=== PATIENT | female | born 1985 | race Two or more races ===

== ENCOUNTER 2018-02-16 10:22 | Emergency (ER) | payer SELFPAY ==
[~2018-02-16] VITALS: Ht 157.5 cm; Wt 68.1 kg
[2018-02-16] MEDS ORDERED: SODIUM CHLORIDE 0.9% 1,000 ML IV ONE (10:37)
[2018-02-16] MEDS ORDERED: CEFTRIAXONE 1 G PREMIX 50 ML IV ONE (11:00)
[2018-02-16] MEDS ORDERED: RALTEGRAVIR 400MG TABLET PO ONE (11:00)
[2018-02-16] MEDS ORDERED: AZITHROMYCIN 500 MG TABLET PO ONE (11:00)
[2018-02-16] MEDS: TENOFOVIR 300MG TABLET PO SCH ×3 (11:16→14:33)
[2018-02-16] MEDS: EMTRICITABINE 200MG CAPSULE PO SCH ×3 (11:16→14:33)
[2018-02-16 11:51] LABS: BASOPHILS % 0.3 % (0.0-2.0); EOSINOPHILS % 2.4 % (0.0-5.0); LYMPHOCYTES % 20.5 % (20.0-50.0); MEAN CORPUSCULAR HEMOGLOBIN 22.3 pg (28.0-32.0); MEAN CORPUSCULAR VOLUME 71.7 fL (81.0-99.0); MEAN PLATELET VOLUME 8.8 fl (7.4-10.4); MONOCYTES % 7.1 % (2.0-8.0); NEUTROPHILS % 69.7 % (40.0-76.0); PLATELET 368 x1000/uL (130-400); RED BLOOD CELL COUNT 4.05 mill/uL (4.2-5.4); RED CELL DISTRIBUTION WIDTH 24.8 % (11.6-14.6)
[2018-02-16 11:55] LABS: CHLORIDE 107 mEq/L (98-107)
[2018-02-16 11:57] LABS: PROTHROMBIN TIME 10.5 sec (9.1-11.1)
[2018-02-16 11:59] LABS: CLARITY URINE CLOUDY (CLEAR); COLOR URINE YELLOW (YELLOW); KETONES URINE NEGATIVE (NEGATIVE); LEUKOCYTE ESTERASE URINE 1+ (NEGATIVE); NITRITE URINE NEGATIVE (NEGATIVE); OCCULT BLOOD URINE NEGATIVE (NEGATIVE); PH URINE 5.5 (4.5-8.0); PROTEIN URINE NEGATIVE (NEGATIVE); SPECIFIC GRAVITY URINE 1.032 (1.005-1.030); UROBILINOGEN URINE 0.2 E.U./dL (0.2-1.0)
[2018-02-16 12:02] LABS: ETHANOL BLOOD < 10 mg/dL
[2018-02-16 12:29] LABS: HCG SCREEN NEGATIVE
[2018-02-16 12:39] LABS: *BARBITURATES SCREEN URINE NEGATIVE (NEGATIVE)
[2018-02-16 12:40] LABS: *BENZODIAZEPINES SCREEN URINE NEGATIVE (NEGATIVE); *COCAINE SCREEN URINE NEGATIVE (NEGATIVE); CANNABINOID URINE SCREEN NEGATIVE (NEGATIVE); METHADONE URINE SCREEN NEGATIVE (NEGATIVE); OPIATES URINE SCREEN NEGATIVE (NEGATIVE); PHENCYCLIDINE URINE SCREEN NEGATIVE (NEGATIVE)
[2018-02-16 12:43] LABS: *AMPHETAMINES SCREEN URINE PRESUMTIVE POSITIVE (NEGATIVE)
[2018-02-16 13:03] LABS: PLATELET ESTIMATE NORMAL
[2018-02-16 15:51] VITALS: BP 120/66
== END 2018-02-16 16:55 | disposition home or self-care (01) ==
LOC: ER 10:27
DX: T43.625A Adverse effect of amphetamines, initial encounter (principal); F17.210 Nicotine dependence, cigarettes, uncomplicated; R94.31 Abnormal electrocardiogram [ECG] [EKG]; Z20.2 Contact with and (suspected) exposure to infections with a predominantly sexual mode of transmission; Y92.89 Other specified places as the place of occurrence of the external cause; Z79.899 Other long term (current) drug therapy
CPT/HCPCS: 71045; 80053; 80305; 80307; 80329; 81003; 81025; 83690; 84484; 84703; 85025; 85610; 87086; 93005; 96365; 96366; 99285; 99406; G0482; J0696; J7030; Z7610